=== PATIENT | male | born 1960 | race Caucasian/White ===

== ENCOUNTER → 2017-05-19 08:17 | Outpatient (CLI) | payer OTHER, SELFPAY ==
[2017-05-17 15:00] LABS: Basophils % 0.1 % (0.1-2.0); Eosinophils # 0.1 K/mm3 (0.0-0.4); Eosinophils % 0.8 % (0.1-12.0); Hematocrit 37.4 % (42.0-52.0); Hemoglobin 12.4 g/dL (14.1-18.0); Lymphocytes # 0.2 K/mm3 (0.7-4.5); Lymphocytes % 1.8 K/mm3 (10-50); Mean Corpuscular HGB Conc 33.2 g/dL (31.8-35.4); Mean Corpuscular Hemoglobin 30.3 pg (27.0-31.2); Mean Corpuscular Volume 91.1 fl (80-94); Mean Platelet Volume 7.1 fl (7.4-10.4); Monocytes # 0.3 K/mm3 (0.1-1.0); Monocytes % 2.6 % (1.7-9.3); Neutrophils # 10.8 K/mm3 (1.8-7.8); Neutrophils % 94.7 % (37.0-80.0); Platelet Count 210 K/mm3 (142-424); Red Blood Count 4.11 M/mm3 (4.60-6.20); Red Cell Distribution Width 13.5 % (11.5-17.5); White Blood Count 11.4 K/mm3 (4.8-10.8)
[2017-05-17 15:10] LABS: MANUAL DIFFERENTIAL MANUAL DIFFERENTIAL (MANUAL DIFF)
[2017-05-17 15:46] LABS: Anion Gap 14.3 mEq/L (5-15); Blood Urea Nitrogen 17 mg/dL (7-18); Carbon Dioxide 28 mmol/L (21.0-32.0); Chloride 104 mmol/L (98-107); Creatinine,Serum 0.93 mg/dL (0.70-1.30); Estimated Glomerular Filt Rate 83 ml/min (>60); GFR (African American) 101 ML/MIN (>60); Glucose 100 mg/dL (74-106); Potassium 4.3 mmoL/L (3.5-5.1); Sodium 142 mmol/L (136-145)
[2017-05-17 16:10] LABS: Eosinophils % 1 % (0-3); Lymphocytes % 5 % (10-50); Monocytes % 1 % (2-9); Neutrophils % 92 % (42-76); Platelet Estimate Normal; RBC Morphology Normal; Total Cells Counted 100
== END ==
LOC: LAB 08:17
PROVIDERS: Visit Provider Physician Assistant
DX: D64.9 Anemia, unspecified (principal); M25.511 Pain in right shoulder; M25.512 Pain in left shoulder; R19.7 Diarrhea, unspecified; R53.83 Other fatigue; R42 Dizziness and giddiness; R94.31 Abnormal electrocardiogram [ECG] [EKG]; I45.2 Bifascicular block; J11.1 Influenza due to unidentified influenza virus with other respiratory manifestations; R11.0 Nausea
CPT/HCPCS: 36415; 80048; 85007; 85025; 87275; 87276

== ENCOUNTER → 2017-08-14 11:02 | Outpatient (CLI) | payer OTHER, SELFPAY ==
--- NOTE | 2017-08-14 11:04 | FL_ITS ---
FL barium swallow modified: 08/14/2017 11:04 AM CLINICAL HISTORY: Dysphasia ORDERING PHYSICIAN: Bong Jiménez MD PATIENT AGE: 57 years Comparison: None TECHNIQUE: Patient administered varying consistencies of barium contrast, while viewed in lateral position under real-time fluoroscopy with cine recording. FLUOROSCOPY TIME: 2 minutes and 21 seconds The study was performed in conjunction with speech pathologist. Please see that report & recommendations. FINDINGS: Patient was given varying consistencies of barium. There was persistent residue in the vallecula with multiple consistencies. This cleared with swallowing and with thin sips. No aspiration or penetration. IMPRESSION: Vallecular residue. No evidence of aspiration or penetration Please see speech pathologist report and recommendations.
--- NOTE | 2017-08-14 13:04 | HMH.SLMBS2 ---
Speech & Language Evaluation Speech/Language Mod Barium Swallow Start: 08/14/17 12:55 Freq: once Status: Complete Protocol: Document 08/14/17 12:55 SUKUMAR (Rec: 08/14/17 13:04 SUKUMAR [id number]) [facility] [place] Recommendations Diet Dietary Recommendations Regular Thin Liquids Treatment/Strategies Strategy/Precaution Recommend Double Swallow Small Bites and Sips Alternate Liquids/Solids Mod Barium Swallow Impressions Summary and Impressions Oral Phase Impression No Impairment (WFL) Oral Phase Summary Mr. Pedraza was given the following consistencies: thins via straw and open cup, pudding, mechanical soft, regular, mixed, and pill with thin wash. No oral phase impairments noted with these consistenices. Pharyngeal Phase Impression Minimal Impairment Pharyngeal Phase Summary It was noted that Mr. Pedraza exhibited vallecular residue with pudding, mechanical soft, and regular. Residue cleared with thin wash . Speech/Language MBS Assessment/Goals/Plan Assessment Date of Evaluation: 08/14/17 Evaluation Type Initial Certification Assessment/Problems Dysphagia Does Patient Qualify for Service No Qualify/Failure Comment Mr. Pedraza was given compensatory strategies to impliment at home to decrease vallecular residue. Plan Pt/Guardian verbally ack understanding Yes of dx/prognosis/goals G -code Required No Mod Barium Swallow Setup Exam Setup Radiologist Odin Mckenzie Level of Consciousness Awake Alert Appropriate Position (degrees) 90 Mod Barium Swallow-Lat View Textures Lateral View Food Presentation Thin Liquid via Cup Thin Liquid via Straw Pureed Food- Thin Ground Food- Regular Barium Tablet Regular Food Pudding Mixed Oral Phase Labial Closure No Impairment (WFL) Bolus Formation Pooling L/R No Impairment (WFL) Bolus Formation under Tongue No Impairment (WFL) Bolus Formation Scattered Loss No Impairment (WFL) Mastication R
== END ==
PROVIDERS: PCP Family Medicine; Visit Provider Surgery
DX: R13.10 Dysphagia, unspecified (principal); T18.108A Unspecified foreign body in esophagus causing other injury, initial encounter
CPT/HCPCS: 70371; 92611

== ENCOUNTER → 2018-09-25 07:58 | Outpatient (POV) | payer OTHER, SELFPAY | PROVIDERS: Visit Provider Dermatology | DX: Z00.00 Encounter for general adult medical examination without abnormal findings (principal) ==

== ENCOUNTER → 2018-10-02 09:15 | Outpatient (POV) | payer OTHER, SELFPAY | PROVIDERS: Visit Provider Dermatology | DX: Z00.00 Encounter for general adult medical examination without abnormal findings (principal) ==

== ENCOUNTER → 2020-10-29 17:32 | Outpatient (CLI) | payer BC, SELFPAY | PROVIDERS: PCP Family Medicine; Visit Provider Family Medicine | DX: Z20.822 Contact with and (suspected) exposure to COVID-19 (principal); U07.1 COVID-19 | CPT/HCPCS: U0003 ==

== ENCOUNTER → 2021-06-28 11:35 | Outpatient (CLI) | payer BC, SELFPAY ==
[2021-06-28 11:59] LABS: Basophils % 0.6 % (0.1-2.0); Eosinophils # 0.2 K/mm3 (0.0-0.4); Eosinophils % 2.6 % (0.1-12.0); Hematocrit 38.8 % (42.0-52.0); Hemoglobin 13.4 g/dL (14.1-18.0); Lymphocytes # 1.7 K/mm3 (0.7-4.5); Lymphocytes % 22.9 % (10-50); Mean Corpuscular HGB Conc 34.4 g/dL (31.8-35.4); Mean Corpuscular Hemoglobin 29.8 pg (27.0-31.2); Mean Corpuscular Volume 86.5 fl (80-94); Monocytes # 0.4 K/mm3 (0.1-1.0); Monocytes % 5.5 % (1.7-9.3); Neutrophils # 5.1 K/mm3 (1.8-7.8); Neutrophils % 68.4 % (37.0-80.0); Platelet Count 279 K/mm3 (142-424); Red Blood Count 4.49 M/mm3 (4.60-6.20); Red Cell Distribution Width 13.6 % (11.5-17.5); White Blood Count 7.5 K/mm3 (4.8-10.8)
[2021-06-28 12:25] LABS: Alanine Aminotransferase 26 U/L (12-78); Albumin Level 4.4 g/dl (3.5-5.0); Alkaline Phosphatase 57 U/L (38-126); Anion Gap 9.7 mEq/L (5-15); Aspartate Amino Transferase 29 U/L (17-59); Bilirubin,Indirect 0.9 mg/dL (0.0-0.9); Bilirubin,Total 0.9 mg/dl (0.2-1.3); Bilirubin,Unconjugated 0.9 mg/dL (0.0-1.1); Blood Urea Nitrogen 17 mg/dl (9-20); Calcium 9.1 mg/dl (8.4-10.2); Carbon Dioxide 29 mmol/L (22.0-30.0); Chloride 106 mmol/L (98-107); Cholesterol 203 mg/dl (140-200); Estimated Glomerular Filt Rate 76 ml/min (>60); GFR (African American) 92 ML/MIN (>60); Glucose 111 mg/dl (74-100); HDL Cholesterol 41 mg/dl (40-60); Potassium 4.7 mmoL/L (3.5-5.1); Sodium 140 mmol/L (136-145); Total Protein,Serum 6.8 g/dl (6.3-8.2); Triglycerides 135 mg/dl (30-150); VLDL Cholesterol 27 mg/dL (0-40)
[2021-06-28 12:36] LABS: Direct LDL Cholesterol 126.79 mg/dL (100-129)
[2021-06-28 12:41] LABS: Free T4 (Free Thyroxine) 1.01 ng/dl (0.78-2.19)
== END ==
PROVIDERS: Visit Provider Physician Assistant
DX: Z01.810 Encounter for preprocedural cardiovascular examination (principal); R94.31 Abnormal electrocardiogram [ECG] [EKG]
CPT/HCPCS: 36415; 80048; 80061; 80076; 84439; 84443; 85025

== ENCOUNTER → 2021-07-01 09:28 | Outpatient (CLI) | payer BC, SELFPAY ==
--- NOTE | 2021-07-01 09:41 | CA_ITS ---
APPROVED REPORT EXAM: Comprehensive 2D, Doppler, and color-flow Echocardiogram Sleeve Separator: Joanna Leonard, RCS, RVS Ht: 5 ft 7 in Wt: 161lbs BSA: 1.84 BP: 135/85 mmHg Indications: SOB, Pre-op, cardiac arrythmia, Tonsil cancer 2D Dimensions IVSd 0.99 cm LVEF (Visual) 74.10 % PWd 0.95 cm LA Volume 34.50 mL LVDd 4.51 cm LA Volume Index 18.80 mL/m2 (M/F) 16-34 LVDs 2.58 cm Aortic Root 3.26 cm Left Atrium 2.51 cm LVOT 1.95 cm (M/F) 1.5-2.5 M-Mode Dimensions RVDd 2.58 cm (0.9-2.6) LA Diam 3.44 cm (1.9-4.0) LVDd 4.47 cm (3.5-5.7) Ao Diam 3.19 cm (2.0-3.7) LVDs 2.96 cm (3.5-5.7) IVSd 1.06 cm (0.6-1.1) PWd 1.10 cm (0.6-1.1) EF (Teich) 62.70% EPSs 0.65 cm FS 33.80% EDV (Teich) 91.00 mL TAPSE 2.71 (<1.7) ESV (Teich) 33.90 mL LV Diastology E Decel Time 150.00 (160-240 msec) E/A Ratio 1.00 MED E' 5.70 (< 7 cm/sec) MED A' 10.60 cm/s E'/MED E' Ratio 12.26 (>14) LAT E' 9.70 (<10 cm/sec) LAT A' 10.80 cm/s E/LAT E' Ratio 7.21 (>14) Aortic Valve LVOT Max 89.00 (70-110 cm/s) LVOT VTI 18.60 cm AoV Peak Arthur. 142.00 (50-130 cm/s) AO Peak GR. 8.00 mmHg AO Mean GR. 4.00 (<5 mmHg) AO VTI 28.29 (18-25 cm) JUVE (VTI) 1.96 (2.5-4.5 cm2) Mitral Valve MV A Velocity 70.00 (40-130 cm/s) E/A Ratio 1.00 MV Decel. Time 150.00 (160-240 ms) MV Mean Gr. 1.00 (<2mmHg) MV PHT 43.00 ms Pulmonary Valve PV Peak Velocity 79.00 (50-150 cm/s) MO End VMAX 111.00 cm/s Tricuspid Valve TR P. Velocity 170.00 cm/s RAP Estimate 10.00 mmHg RVSP 21.60 mmHg Left Ventricle Left atrium is mildly enlarged, left ventricle is normal size, mild concentric left ventricular hypertrophy, estimated ejection fraction 55% with no regional wall motion abnormality, grade 1 diastolic dysfunction seen without tissue Doppler evidence of raise left atrial pressure. Right Ventricle Right atrium and right ventricle are normal size and contractility. Aortic Valve Aortic valve is minimally thickened and fibrosed there is no aortic stenosis or aortic insufficiency. Mitral Valve Mitral valve grossly normal, there is trace mitral regurgitation. Tricuspid Valve Tricuspid grossly normal, there is trace tricuspid regurgitation, tricuspid regurgitation jet velocity is inadequate for calculation of the right ventricular systolic pressure. Pulmonic Valve Pulmonic valve is poorly visualized. Great Vessels Aortic root is normal size. Inferior vena cava is normal size with normal inspiratory collapse. Pericardium No significant pericardial effusion noted. Conclusion 1. Mildly enlarged left atrium, normal left ventricular size, mild concentric left ventricular hypertrophy, estimated ejection fraction 55% with no regional wall motion abnormality, grade 1 diastolic dysfunction seen without tissue Doppler evidence of raise left atrial pressure. 2. Trace mitral and tricuspid regurgitation. 3. No significant pericardial effusion noted 4. Inferior vena cava normal size with normal inspiratory collapse. Electronically signed by : Garcia Schuler MD 07/02/2021 11:23:16
== END ==
LOC: RT 09:30
PROVIDERS: PCP Family Medicine; Visit Provider Physician Assistant
DX: Z01.810 Encounter for preprocedural cardiovascular examination (principal); R94.31 Abnormal electrocardiogram [ECG] [EKG]
CPT/HCPCS: 93306

== ENCOUNTER → 2021-07-20 14:13 | Outpatient (POV) | payer BC, SELFPAY | PROVIDERS: Visit Provider Dermatology | DX: Z00.00 Encounter for general adult medical examination without abnormal findings (principal) ==

== ENCOUNTER 2022-06-03 21:43 | Emergency (ER) | payer BC, SELFPAY ==
[2022-06-03] VITALS (7 sets, daily range): BP systolic 150–170; BP diastolic 94–97; PULSE 73–81; RESP 12–17; TEMP 36.8–37; O2SAT 96–98; BMI 24.9
--- NOTE | 2022-06-03 21:43 | ECG_ITS ---
APPROVED REPORT Exam: Resting ECG HR:77 bpm ECG Measurements Heart Rate 77 AXES KS 177 P 33 QRSd 134 QRS -54 QT 405 T 45 QTc 437 Conclusion SINUS RHYTHM WITH OCCASIONAL ECTOPIC PREMATURE COMPLEXES RIGHT BUNDLE BRANCH BLOCK [120+ ms QRS DURATION, UPRIGHT V1, 40+ ms S IN I/aVL/V4/V5/V6] LEFT ANTERIOR FASCICULAR BLOCK [QRS AXIS <= -45, QR IN I, RS IN II] ABNORMAL ECG UNCONFIRMED REPORT Electronically signed by : Ross Guerrero MD 06/06/2022 19:52:22
--- NOTE | 2022-06-03 21:53 | XR_ITS ---
PROCEDURE INFORMATION: Exam: XR Chest Exam date and time: 06/03/2022 10:20 PM Age: 61 years old Clinical indication: Other: Syncope TECHNIQUE: Imaging protocol: Radiologic exam of the chest. Views: 1 view. COMPARISON: CT CERVICAL SPINE WO CON 06/03/2022 10:13 PM FINDINGS: Lungs: Unremarkable. No consolidation. Pleural spaces: Unremarkable. No pleural effusion. No pneumothorax. Heart/Mediastinum: Unremarkable. No cardiomegaly. Bones/joints: Unremarkable. IMPRESSION: No acute findings.
--- NOTE | 2022-06-03 21:57 | CT_ITS ---
PROCEDURE INFORMATION: Exam: CT Cervical Spine Without Contrast Exam date and time: 06/03/2022 10:13 PM Age: 61 years old Clinical indication: Injury or trauma; Fall; Other: Loc; Additional info: Head trauma with loss of consciousness TECHNIQUE: Imaging protocol: Computed tomography of the cervical spine without contrast. Radiation optimization: All CT scans at this facility use at least one of these dose optimization techniques: automated exposure control; mA and/or kV adjustment per patient size (includes targeted exams where dose is matched to clinical indication); or iterative reconstruction. REPORTING DATA: Count of CT and Cardiac NM exams in prior 12 months: This patient has received [address] and 0 known cardiac nuclear medicine studies in the 12 months prior to the current study. COMPARISON: NECKW CT SOFT TISSUE NECK W/CONTRAST 09/02/2016 9:03 AM FINDINGS: Bones/joints: Moderate multilevel degenerative changes of the spine. No fracture. Lungs: Lung apices are normal. Soft tissues: Mucosal thickening of the paranasal sinuses. No air fluid level. IMPRESSION: Chronic changes without acute process.
--- NOTE | 2022-06-03 21:57 | CT_ITS ---
PROCEDURE INFORMATION: Exam: CT Head Without Contrast Exam date and time: 06/03/2022 10:10 PM Age: 61 years old Clinical indication: Injury or trauma; Fall; Other: Loc; Additional info: Head trauma with loss of consciousness TECHNIQUE: Imaging protocol: Computed tomography of the head without contrast. Radiation optimization: All CT scans at this facility use at least one of these dose optimization techniques: automated exposure control; mA and/or kV adjustment per patient size (includes targeted exams where dose is matched to clinical indication); or iterative reconstruction. REPORTING DATA: Count of CT and Cardiac NM exams in prior 12 months: This patient has received [address] and 0 known cardiac nuclear medicine studies in the 12 months prior to the current study. COMPARISON: NECKW CT SOFT TISSUE NECK W/CONTRAST 09/02/2016 9:03 AM FINDINGS: Brain: White matter hypodensity which is nonspecific but compatible with small vessel occlusive change. Global atrophy. No mass. No hemorrhage. Cerebral ventricles: No ventriculomegaly. Paranasal sinuses: No fluid levels. Mastoid air cells: Visualized mastoid air cells are well aerated. Bones/joints: No acute fracture. Soft tissues: No significant soft tissue abnormality. IMPRESSION: Chronic changes without acute process.
--- NOTE | 2022-06-03 21:59 | HMH.EDSYNC ---
Discharge Plan Disposition Patient Disposition: Home, Self-Care Chief Complaint: Syncope Prescriptions Prescriptions: No Action lisinopril 10 mg tablet 10 mg PO DAILY Label Comments: TAKE 1 TABLET BY MOUTH ONCE DAILY metoprolol succinate 25 mg tablet extended release 24 hr 12.5 mg PO HS PRN (Reason: bp) Qty: 30 5RF esomeprazole magnesium 40 mg capsule,delayed release(DR/EC) 40 mg PO DAILY Referrals Follow up/Referrals: Asher Mix MD [Primary Care Provider] - See instructions Clinical Impressions Clinical Impression: Concussion Instructions Patient Instructions: DI for Syncope in Adults (Fainting), DI for Syncope in Children (Fainting) Discharge ED Provider: David Carrillo Syncope HPI General Chief Complaint: Syncope Stated Complaint: syncope while skating Time Seen by Provider: 06/03/22 21:59 Mode of Arrival: EMS Source of Information: Patient Limitations: No Limitations Description of Symptoms (Recalled from ER Triage Doc. by RN): pt to ED via ems after a syncopal episode tonight while roller skating. pt denies any symptoms prior to the event. pt fell from a standing position but denies any head or neck pain History of Present Illness HPI narrative: 61-year-old white male seen following syncopal episode at the [facility] there are no witnesses present that can give the accurate history but EMS was called to the [facility] after this patient fell. The patient cannot remember whether he got dizzy and passed out causing the fall or whether he tripped striking his head and had a resultant syncopal episode following that. In either event he is memory around the time of the head injury is not clear and his mentation is still slow. His past history is positive for hypertension and bifascicular block he has no known drug allergies. Related Data Home Medications Medication Instructions Recorded Confirmed esomeprazole magnesium 40 mg 40 mg PO DAILY GERD 07/25/18 01/10/22 capsule,delayed release lisinopril 10 mg tablet 10 mg PO DAILY 06/28/21 01/10/22 Previous Rx's Medication Instructions Recorded metoprolol succinate 25 mg 12.5 mg PO HS PRN bp #30 tabs 06/28/21 tablet,extended release 24 hr Allergies Allergy/AdvReac Type Severity Reaction Status Date / Time No Known Allergies Allergy Verified 01/10/22 11:03 [facility] Disclaimer: The information contained in this section may have been updated after the patient was seen, as this information can be updated by other users. Medical History Encounter for pre-operative cardiovascular clearance Skin cancer of face Surgical History (Updated 01/10/22 @ 11:05 by Norah Yu) History of tonsillectomy Social History Smoking Status: Never smoker alcohol intake: current counseling provided: none substance use type: denies use current occupational status: other Travel in the last 8 weeks: Inside the [place] caffeine: No ROS Obtained: Yes All systems reviewed & no additional complaints except as documented Physical Exam General General appearance: alert (He is alert alert but has slowed mentation with answering the questions. He is oriented x3 at this point.) Head Head exam: atraumatic and normocephalic Eye Eye exam: Present normal appearance, PERRL and EOMI Neck Neck exam: Present normal inspection Chest Chest inspection: Present normal inspection Respiratory Respiratory exam: Present normal lung sounds bilaterally Cardiovascular Cardiovascular exam: Present regular rate and normal rhythm Abdominal Exam Abdominal exam: Present soft; Absent tenderness Extremities Exam Extremities exam: Present normal inspection and full ROM Back Exam Back exam: Present normal inspection Neurological Exam Neurological exam: Present alert, oriented X3 and CN II-XII intact Skin Ski
[2022-06-03 22:11] LABS: Basophils # 0.1 K/mm3 (0-0.2); Basophils % 0.8 % (0.1-2.0); Eosinophils # 0.2 K/mm3 (0.0-0.4); Eosinophils % 2.6 % (0.1-12.0); Hematocrit 37.2 % (42.0-52.0); Hemoglobin 12.5 g/dL (14.1-18.0); Lymphocytes # 1.9 K/mm3 (0.7-4.5); Mean Corpuscular HGB Conc 33.6 g/dL (31.8-35.4); Mean Corpuscular Hemoglobin 30.1 pg (27.0-31.2); Mean Corpuscular Volume 89.5 fl (80-94); Mean Platelet Volume 7.6 fl (7.4-10.4); Monocytes # 0.4 K/mm3 (0.1-1.0); Monocytes % 4.5 % (1.7-9.3); Neutrophils # 5.2 K/mm3 (1.8-7.8); Platelet Count 253 K/mm3 (142-424); Red Blood Count 4.15 M/mm3 (4.60-6.20); Red Cell Distribution Width 14.3 % (11.5-17.5); White Blood Count 7.8 K/mm3 (4.8-10.8)
[2022-06-03 22:17] LABS: Chloride 101 mmol/L (98-107)
[2022-06-03 22:18] LABS: Potassium 3.6 mmoL/L (3.5-5.1); Sodium 137 mmol/L (136-145)
[2022-06-03 22:20] LABS: Alanine Aminotransferase 19 U/L (12-78); Aspartate Amino Transferase 27 U/L (17-59); Blood Urea Nitrogen 15 mg/dl (9-20); Creatinine Clearance Estimated 77 mL/min (50-200); Estimated Glomerular Filt Rate 75 ml/min (>60); GFR (African American) 91 ML/MIN (>60)
[2022-06-03 22:21] LABS: Albumin Level 4.2 g/dl (3.5-5.0); Albumin/Globulin Ratio 1.6 (1.1-1.8); Alkaline Phosphatase 65 U/L (38-126); Anion Gap 12.6 mEq/L (5-15); Bilirubin,Total 0.7 mg/dl (0.2-1.3); Calcium 8.4 mg/dl (8.4-10.2); Carbon Dioxide 27 mmol/L (22.0-30.0); Globulin 2.6 g/dL (1.3-3.2); Glucose 117 mg/dl (74-100); Total Protein,Serum 6.8 g/dl (6.3-8.2)
[2022-06-03 22:39] LABS: Troponin I < 0.01 ng/ml (0.00-0.034)
[2022-06-03 23:26] LABS: Microscopic, Urine URINE MICROSCOPIC (MICROSCOPIC)
[2022-06-03 23:30] LABS: Appearance,Urine CLEAR (Clear); Bilirubin,Urine Negative (Negative); Blood, Urine TRACE-I (Negative); Color,Urine YELLOW (Yellow); Glucose,Urine (UA) Negative (Negative); Ketones,Urine Negative (Negative); Leukocyte Esterase,Urine Negative (Negative); Nitrate,Urine Negative (Negative); Protein,Urine Negative (Negative); Urobilinogen,Urine 0.2 EU/dl (0.2)
[2022-06-03 23:42] LABS: Barbiturates Screen,Urine Negative ng/ml (<200)
[2022-06-03 23:43] LABS: Amphetamine/Metha Screen,Urine Negative ng/ml (<1000); Benzodiazepines Screen,Urine Negative ng/ml (<200)
[2022-06-03 23:44] LABS: Methadone Screen,Urine Negative ng/ml (<300); RBC,Urine Occasional #/hpf (0-3)
[2022-06-03 23:45] LABS: Cannabinoid Screen,Urine Negative ng/ml (<50); Cocaine Screen,Urine Negative ng/ml (<300)
[2022-06-03 23:46] LABS: Opiate Screen,Urine Negative ng/ml (<300); Phencyclidine Screen,Urine Negative ng/ml (<25)
== END 2022-06-04 00:12 | disposition home or self-care (01) ==
LOC: ER 22:20 → 2ND 22:37 → ER 23:52
PROVIDERS: Emergency Provider Emergency Medicine; PCP Family Medicine
DX: S06.0X9A Concussion with loss of consciousness of unspecified duration, initial encounter (principal); R55 Syncope and collapse; W01.0XXA Fall on same level from slipping, tripping and stumbling without subsequent striking against object, initial encounter
CPT/HCPCS: 70450; 71045; 72125; 80053; 80305; 81001; 84484; 85025; 93005; 99284; 99285

== ENCOUNTER 2022-07-07 12:54 | Emergency (ER) | payer BC, SELFPAY ==
--- NOTE | 2022-07-07 13:10 | CT_ITS ---
FINAL REPORT TECHNIQUE: After the administration of oral and intravenous contrast, axial images were obtained through the abdomen and pelvis by computed tomography. The study was performed with techniques to keep radiation dose as low as reasonably achievable, (ALARA). Individual dose reduction techniques using automated exposure control or adjustment of mA and/or kV according to the patient's size were employed. CLINICAL HISTORY: abdominal pain, vomiting COMPARISON: None FINDINGS: Abdomen: The lung bases are clear. The liver parenchyma is homogeneous. There is a small to moderate hiatal hernia. The gallbladder is distended with a large amount of sludge. There is a calcified granuloma in the spleen. There is a benign cyst in the superior pole left kidney measuring 2.8 x 2.4 cm. The pancreas and adrenals appear unremarkable. The aorta is normal in caliber. There is no free fluid or adenopathy. Pelvis: The appendix is unremarkable. There is extensive descending and sigmoid diverticulosis without evidence of acute diverticulitis. The urinary bladder is unremarkable. There is no free fluid or adenopathy. IMPRESSION: Large sludge in the gallbladder. Descending and sigmoid diverticulosis without diverticulitis. Reviewed, Interpreted and Dictated by Michele Driver MD Transcribed by Demi Pop Authenticated and [facility]
[2022-07-07 13:14] VITALS: BP 190/95; PULSE 62; RESP 18; TEMP 36.5; O2SAT 100; BMI 24.4
[2022-07-07 13:38] LABS: Basophils % 0.7 % (0.1-2.0); Eosinophils # 0.1 K/mm3 (0.0-0.4); Eosinophils % 2.5 % (0.1-12.0); Hematocrit 40.9 % (42.0-52.0); Hemoglobin 13.8 g/dL (14.1-18.0); Lymphocytes # 1.4 K/mm3 (0.7-4.5); Lymphocytes % 26.7 % (10-50); Mean Corpuscular HGB Conc 33.7 g/dL (31.8-35.4); Mean Corpuscular Hemoglobin 29.5 pg (27.0-31.2); Mean Corpuscular Volume 87.4 fl (80-94); Mean Platelet Volume 6.7 fl (7.4-10.4); Monocytes # 0.3 K/mm3 (0.1-1.0); Monocytes % 5.3 % (1.7-9.3); Neutrophils # 3.5 K/mm3 (1.8-7.8); Neutrophils % 64.8 % (37.0-80.0); Platelet Count 229 K/mm3 (142-424); Red Blood Count 4.69 M/mm3 (4.60-6.20); Red Cell Distribution Width 13.8 % (11.5-17.5); White Blood Count 5.3 K/mm3 (4.8-10.8)
--- NOTE | 2022-07-07 13:38 | PC.NURSE ---
warm blanket provided
[2022-07-07 13:45] LABS: Chloride 100 mmol/L (98-107); Potassium 3.9 mmoL/L (3.5-5.1); Sodium 140 mmol/L (136-145)
[2022-07-07 13:48] LABS: Alanine Aminotransferase 235 U/L (12-78); Alkaline Phosphatase 137 U/L (38-126); Anion Gap 16.9 mEq/L (5-15); Aspartate Amino Transferase 288 U/L (17-59); Bilirubin,Total 1.6 mg/dl (0.2-1.3); Blood Urea Nitrogen 14 mg/dl (9-20); Calcium 9.1 mg/dl (8.4-10.2); Carbon Dioxide 27 mmol/L (22.0-30.0); Creatinine Clearance Estimated 76 mL/min (50-200); Estimated Glomerular Filt Rate 85 ml/min (>60); GFR (African American) 103 ML/MIN (>60); Glucose 121 mg/dl (74-100); Lipase 105 U/L (23-300)
[2022-07-07 13:49] LABS: Albumin Level 4.3 g/dl (3.5-5.0); Albumin/Globulin Ratio 1.4 (1.1-1.8); Total Protein,Serum 7.3 g/dl (6.3-8.2)
--- NOTE | 2022-07-07 13:52 | HMH.EDGENADL ---
Discharge Plan Disposition Patient Disposition: Home, Self-Care Prescriptions Prescriptions: New oxycodone 5 mg tablet 5 mg PO Q8H PRN (Reason: pain) Qty: 12 0RF ondansetron 4 mg tablet,disintegrating 4 mg PO Q8H PRN (Reason: Nausea) Qty: 15 0RF No Action lisinopril 10 mg tablet 10 mg PO DAILY Label Comments: TAKE 1 TABLET BY MOUTH ONCE DAILY esomeprazole magnesium 40 mg capsule,delayed release(DR/EC) 40 mg PO DAILY metoprolol succinate 25 mg tablet extended release 24 hr 12.5 mg PO HS PRN (Reason: bp) Qty: 30 5RF Referrals Follow up/Referrals: Jyothi Dumont PA [Primary Care Provider] - See instructions Activity Restrictions/Add. Instructions Additional Instructions/Restrictions: Follow up with General Surgery on July 13 at 2PM Return for any worsening of pain or vomiting within the next few days. Clinical Impressions Clinical Impression: Cholelithiasis Instructions Patient Instructions: DI for Acute Abdominal Pain Discharge ED Provider: Javi Mckinley General Adult HPI General Chief complaint: Abdominal Pain Stated complaint: Vomiting, abd pain Time Seen by Provider: 07/07/22 13:00 Mode of Arrival: Ambulatory Source of Information: Patient Limitations: No Limitations Description of Symptoms (Recalled from ER Triage Doc. by RN): Patient presents from home d/t abd pain. History of Present Illness HPI narrative: 61-year-old male presents with epigastric pain. He has history of gastritis. Says the pain came on pretty severe and sudden in the epigastric region. No vomiting or diarrhea no bleeding per rectum or by mouth. He takes a PPI and follows up with Dr. Jiménez here. Abdominal pain is localized to the epigastric region no chest pain shortness of air headache Related Data Home Medications Medication Instructions Recorded Confirmed esomeprazole magnesium 40 mg 40 mg PO DAILY GERD 07/25/18 01/10/22 capsule,delayed release lisinopril 10 mg tablet 10 mg PO DAILY 06/28/21 01/10/22 Previous Rx's Medication Instructions Recorded metoprolol succinate 25 mg 12.5 mg PO HS PRN bp #30 tabs 06/30/22 tablet,extended release 24 hr ondansetron 4 mg disintegrating 4 mg PO Q8H PRN Nausea #15 tabs 07/07/22 tablet oxycodone 5 mg tablet 5 mg PO Q8H PRN pain #12 tabs 07/07/22 Allergies Allergy/AdvReac Type Severity Reaction Status Date / Time No Known Allergies Allergy Verified 01/10/22 11:03 [facility] Disclaimer: The information contained in this section may have been updated after the patient was seen, as this information can be updated by other users. Medical History Encounter for pre-operative cardiovascular clearance Skin cancer of face Surgical History (Updated 01/10/22 @ 11:05 by Norah Yu) History of tonsillectomy Social History Smoking Status: Unknown if ever smoked alcohol intake: current counseling provided: none substance use type: denies use current occupational status: other Travel in the last 8 weeks: Inside the [place] caffeine: No ROS Obtained: Yes All systems reviewed & no additional complaints except as documented Constitutional Constitutional: Denies fatigue and Denies fever(s) Eyes Eyes: Denies dry eyes ENT Ears, Nose, Mouth, and Throat: Denies dry mouth Cardiovascular Cardiovascular: Denies diaphoresis and Denies dyspnea Respiratory Respiratory: Denies dyspnea and Denies wheezing Gastrointestinal Gastrointestingal: Denies coffee ground emesis Genitourinary Male Genitourinary: Denies flank pain Musculoskeletal Musculoskeletal: Denies joint swelling Integumentary/Breasts Skin/Breast: Denies rash Neurologic Neurologic: Denies confusion Endocrine Endocrine: Denies fatigue Allergic/Immunologic Allergic/Immunologic: Denies wheezing Physical Exam General General appearance: alert and i
[2022-07-07 14:39] VITALS: BP 188/90; PULSE 64; O2SAT 100
[2022-07-07 15:01] VITALS: BP 178/86; PULSE 55; RESP 18; O2SAT 100
--- NOTE | 2022-07-07 16:01 | PC.NURSE ---
rounded on pt he was resting in bed nothin needed at this time,call light at bs
[2022-07-07 16:32] VITALS: BP 148/84; PULSE 75; RESP 16; TEMP 36.8; O2SAT 98
== END 2022-07-07 16:33 | disposition home or self-care (01) ==
PROVIDERS: Emergency Provider Emergency Medicine; PCP Physician Assistant
DX: R10.13 Epigastric pain (principal); K80.20 Calculus of gallbladder without cholecystitis without obstruction
CPT/HCPCS: 74177; 80053; 83690; 85025; 96361; 96374; 99284; 99285; J2405; Q9967

== ENCOUNTER → 2022-07-13 14:17 | Outpatient (CLI) | payer BC, SELFPAY ==
[2022-07-13 15:55] LABS: Basophils % 0.6 % (0.1-2.0); Eosinophils # 0.2 K/mm3 (0.0-0.4); Eosinophils % 2.8 % (0.1-12.0); Hematocrit 42.8 % (42.0-52.0); Lymphocytes # 1.4 K/mm3 (0.7-4.5); Mean Corpuscular HGB Conc 32.8 g/dL (31.8-35.4); Mean Corpuscular Hemoglobin 29.2 pg (27.0-31.2); Mean Corpuscular Volume 89.1 fl (80-94); Monocytes # 0.4 K/mm3 (0.1-1.0); Monocytes % 6.6 % (1.7-9.3); Neutrophils # 3.6 K/mm3 (1.8-7.8); Platelet Count 288 K/mm3 (142-424); Red Blood Count 4.81 M/mm3 (4.60-6.20); White Blood Count 5.6 K/mm3 (4.8-10.8)
[2022-07-13 16:45] LABS: Alanine Aminotransferase 115 U/L (12-78); Albumin Level 4.5 g/dl (3.5-5.0); Albumin/Globulin Ratio 1.8 (1.1-1.8); Alkaline Phosphatase 112 U/L (38-126); Anion Gap 18.1 mEq/L (5-15); Aspartate Amino Transferase 55 U/L (17-59); Bilirubin,Total 0.9 mg/dl (0.2-1.3); Blood Urea Nitrogen 14 mg/dl (9-20); Calcium 9.2 mg/dl (8.4-10.2); Carbon Dioxide 27 mmol/L (22.0-30.0); Chloride 99 mmol/L (98-107); Estimated Glomerular Filt Rate 75 ml/min (>60); GFR (African American) 91 ML/MIN (>60); Globulin 2.5 g/dL (1.3-3.2); Glucose 107 mg/dl (74-100); Potassium 4.1 mmoL/L (3.5-5.1); Sodium 140 mmol/L (136-145)
== END ==
PROVIDERS: PCP Family Medicine; Visit Provider Surgery
DX: K80.20 Calculus of gallbladder without cholecystitis without obstruction (principal)
CPT/HCPCS: 36415; 80053; 85025

== ENCOUNTER 2022-07-28 07:52 | Day surgery (SDC) | payer BC, SELFPAY ==
[2022-07-27 10:03] VITALS: BMI 24.3
[2022-07-28] VITALS (11 sets, daily range): BP systolic 131–167; BP diastolic 86–97; PULSE 70–78; RESP 14–18; TEMP 36.2–43; O2SAT 94–99
--- NOTE | 2022-07-28 08:37 | EXP.ANES.CKL ---
[facility] Disclaimer: The information contained in this section may have been updated after the patient was seen, as this information can be updated by other users. Medical History Encounter for pre-operative cardiovascular clearance HTN (hypertension), benign Hypertension Skin cancer of face Surgical History History of tonsillectomy Family History Other Coronary artery disease Social History Smoking Status: Former smoker alcohol intake: current counseling provided: none substance use type: denies use current occupational status: employed Travel in the last 8 weeks: None caffeine: No [facility] Anesthesia Checklist Patient Identification Patient Identification: Arm Band and Family Structural Data Admitted From: Home Planned Operative Procedure/s: Laposcopic Cholecystectomy. Verified Documents: Surgical Consent and History and Physical NPO Status Verified Time NPO: 00:00 Additional verifications Patient : No Anesthesia Reactions: No Hx Blood Transfusions: No Blood Transfusion Reaction: No Cephalosporin Allergy: No Previous Colonoscopy: No Airway Assessment C-Spine Mobility Assessed: Yes TMJ Mobility Assessed: Yes Dentition: Poor Dentition Neurological Assessment Level of Consciousness: Awake, Alert, Appropriate and Follows Commands Hx Seizures: No Numbness or tingling in extremities: No Anesthesia Plan Anesthesia Risk discussed: Yes ASA Class: II Anesthesia Type: General Preoperative Comments Pre-Operative Comments: Uses Hearing Aids. History of irregular heart beat.
--- NOTE | 2022-07-28 11:17 | P.OP_ITS ---
Date of procedure: 07/28/22 Pre-op Diagnosis:: Biliary sludge Right upper quadrant pain Post-op Diagnosis:: Chronic calculus cholecystitis Procedure performed:: Laparoscopic cholecystectomy Surgeon:: Bong Jiménez MD Anesthesia: CORINNA Estimated blood loss (mL): 25 Operative findings:: Significant pericholecystic fat stranding Wall thickening Multiple gallstones Operative note:: After informed consent was obtained, the patient was taken to the operating room and placed in the supine position. General anesthesia was induced and the abdomen was prepped and draped in a sterile fashion. After infiltration with local anesthetic an infraumbilical incision was made. A Veress needle was placed in position. The abdomen was insufflated. A 5 mm optical trocar was placed in position. Under direct visualization, a 12 mm trocar was placed in the subxiphoid position and 2 additional 5 mm trocars were placed in the right upper quadrant. The gallbladder was elevated up and over the liver margin. The tissue around the cystic duct was carefully dissected. The cystic artery was also freed from surrounding tissue. A single clip was placed at the artery and harmonic lucila were then used to transect above this site. Significant soft ti ssue thickening noted. Infundibular thickening was fairly pronounced. A single clip was placed in position on the duct; however, it did not traverse the entire length. The decision was made to proceed with a dome down approach with Endoloop placement. Harmonic lucila were utilized to dissect the gallbladder away from the liver margin. Endoloops (x2) were then placed at the infundibulum. The gallbladder was transected above this site and then placed in a retrieval bag before being removed through the subxiphoid trocar site. The right upper quadrant was thoroughly irrigated. No active bleeding or bile leak was noted. Fascia at the subxiphoid trocar site was reapproximated utilizing the NeoClose device. The remaining trocars were removed. All wounds were irrigated and skin was closed with 4-0 Monocryl in a subcuticular fashion. Steri-Strips were applied. The patient's anesthetic agents were reversed and extubation was completed prior to transfer to recovery in stable condition. Condition: stable Disposition: PACU Specimens:: Gallbladder Complications:: No immediate
--- NOTE | 2022-07-28 11:28 | EXP.ANES.I ---
[facility] Anesthesia Record Part I Anesthesia Record I Intake, IV Amount: 1,600 Estimated blood loss (mL): 25 Urine output (mL): 0 Blood Products used (#): none Blood Pressure: 148/87 SaO2: 95 Pulse Rate: 70 Respiratory Rate: 14 Temperature: 97.1 F Patient is:: Drowsy and Stable Stable to PACU at:: 11:22
--- NOTE | 2022-07-28 11:48 | SUR.PHASEI ---
1138- RFeeback, [employer] ROOM OPERATOR called to bedside related to pt's upper lip that was swollen. No rash noted on body, pt is 96% on room air with respiration between 15-17. 25mg IV Benadryl ONCE NOW ordered and carried out. Pt also given chapstick to help with dry lips.
--- NOTE | 2022-07-29 08:24 | EXP.ANES.II ---
[facility] Anesthesia Record Part II Anesthesia Record Part II Discharge Time: 11:52 Destination: Surgical Day Care (OP Surgery) PACU nurse assessment reviewed?: Yes Patient Condition:: Good Anesthesia Complications:: None Swallowing reflex intact?: Yes Cyanosis?: No Blood Pressure: 163/94 Pulse Rate: 70 Temperature: 97.8 F Mental Status: Alert & Oriented Pain level:: 5 Nausea and/or vomitting:: None Intake, IV Amount: 0
[2022-07-29 08:25] VITALS: BP 163/94; PULSE 70; TEMP 36.6
== END 2022-07-28 13:00 | disposition home or self-care (01) ==
PROVIDERS: PCP Family Medicine; Visit Provider Surgery
PROC: 0FT44ZZ Resection of Gallbladder, Percutaneous Endoscopic Approach (ICD-10-PCS; CPT 47562; principal; 2022-07-28 09:15)
DX: K80.10 Calculus of gallbladder with chronic cholecystitis without obstruction (principal); K83.8 Other specified diseases of biliary tract; R93.2 Abnormal findings on diagnostic imaging of liver and biliary tract
CPT/HCPCS: 47562; 96374; J2405